=== PATIENT | female | born 1980 | race Caucasian/White ===

== ENCOUNTER 2017-07-15 16:58 | Emergency (ER) | payer OTHER ==
[2017-07-15 17:03] VITALS: BP 114/62; PULSE 68; TEMP 98.3; BMI 19.5
[2017-07-15] MEDS ORDERED: DIPHTH,PERTUSS(ACELL),TET 0.5 ML DISP.SYRIN IM ONE (17:41)
[2017-07-15] MEDS ORDERED: ACETAMINOPHEN 325 MG TABLET (FP) PO ONE ×2 (18:00→18:06)
--- NOTE | 2017-07-15 18:00 | PDOC ---
History of Present Illness - General History Source: Patient Exam Limitations: No Limitations - History of Present Illness Initial Comments: 07/15/17 18:03 The patient is a 36 year old female with no significant past medical history who presents to the ED with a right forehead injury. 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 She sustained a small wound with some surrounding swelling. The patient denies any loss of consciousness. She denies headache, blurred vision, numbness, tingling, or focal weakness. She denies nausea, vomiting, or diarrhea. She denies any other injury. <Rekha Pimentel - Last Filed: 07/15/17 18:45> <Tamy Roy - Last Filed: 07/15/17 19:01> - General Chief Complaint: Injury Stated Complaint: HEAD INJURY Time Seen by Provider: 07/15/17 17:16 Past History <Rekha Pimentel - Last Filed: 07/15/17 18:45> - Past Medical History COPD: No - Suicide/Smoking/Psychosocial Hx Smoking History: Never smoked Have you smoked in the past 12 months: Yes Number of Cigarettes Smoked Daily: 5 Information on smoking cessation initiated: Yes 'Breaking Loose' booklet given: 07/15/17 Hx Alcohol Use: No Drug/Substance Use Hx: No <Tamy Roy - Last Filed: 07/15/17 19:01> - Past Medical History Allergies/Adverse Reactions: Allergies Allergy/AdvReac Type Severity Reaction Status Date / Time No Known Allergies Allergy Verified 07/15/17 16:59 Home Medications: Ambulatory Orders NK [No Known Home Medication] 07/15/17 Review of Systems - Review of Systems Able to Perform ROS?: Yes Comments:: 07/15/17 18:05 GENERAL/CONSTITUTIONAL: No fever or chills. No weakness. HEAD, EYES, EARS, NOSE AND THROAT: No change in vision. No ear pain or discharge. No sore throat. GASTROINTESTINAL: No nausea, vomiting, diarrhea or constipation. GENITOURINARY: No dysuria, frequency, or change in urination. CARDIOVASCULAR: No chest pain or shortness of breath. RESPIRATORY: No cough, wheezing, or hemoptysis. MUSCULOSKELETAL: No joint or muscle swelling or pain. No neck or back pain. SKIN: +Right forehead abrasion and swelling. No rash NEUROLOGIC: No headache, vertigo, loss of consciousness, or change in strength/ sensation. ENDOCRINE: No increased thirst. No abnormal weight change. HEMATOLOGIC/LYMPHATIC: No anemia, easy bleeding, or history of blood clots. ALLERGIC/IMMUNOLOGIC: No hives or skin allergy. <Rekha Pimentel - Last Filed: 07/15/17 18:45> *Physical Exam - Vital Signs Last Vital Signs Temp Pulse Resp BP Pulse Ox 98.3 F 68 18 114/62 98 07/15/17 16:58 07/15/17 16:58 07/15/17 16:58 07/15/17 16:58 07/15/17 16:58 - Physical Exam Comments: 07/15/17 18:06 Constitutional: Awake, alert, oriented. No acute distress. Head: Normocephalic. Atraumatic Eyes: PERRL. EOMI. Conjunctivae are not pale. ENT: Mucous membranes are moist and intact. Posterior pharynx without exudates or erythema. Uvula midline. Neck: Supple. Full ROM. No lymphadenopathy. Cardiovascular: Regular rate. Regular rhythm. S1, S2 regular. Distal pulses are 2+ and symmetric. Pulmonary/Chest: No evidence of respiratory distress. Clear to auscultation bilaterally No wheezing, rales or rhonchi. Abdominal: Soft and non-distended. There is no tenderness. No rebound, guarding or rigidity. No organomegaly. No palpable masses. Good bowel sounds. Back: No CVA tenderness. Musculoskeletal: No edema. No cyanosis. No clubbing. Full range of motion in all extremities. Nocalf tenderness. Radial/pedal pulses are intact and 2+ bilaterally Skin: +Small superficial abrasion with surrounding soft tissue swelling. Skin is warm and dry. No petechiae. No purpura. Neurological: Alert and oriented to person, place, and time. Cranial nerves II -XII are grossly intact. Normal speech. Strength is grossly symmetric. No sensory deficits. Psychiatric: Good eye contact. Normal interaction, affect and behavior. <Rekha Pimentel - Last Filed: 07/15/17 18:45> - Vital Signs Last Vital Signs Temp Pulse Resp BP Pulse Ox 98.3 F 68 18 114/62 98 07/15/17 16:58 07/15/17 16:58 07/15/17 16:58 07/15/17 16:58 07/15/17 16:58 <Tamy Roy - Last Filed: 07/15/17 19:01> Procedures - Laceration/Wound Repair Left Upper Distal 3rd digit Wound Length: to 2.5 cm Wound Explored: clean, no foreign body present Wound's Depth, Shape: superficial Anesthesia: 1% Lidocaine Amount of Anesthetic (ccs): 3 Wound Repaired With: Sutures Suture Size/Type: 4:0 Number of Sutures: 8 <Rekha Pimentel - Last Filed: 07/15/17 18:45> - Laceration/Wound Repair Left Upper Distal 3rd digit Progress: 07/15/17 18:52 This procedure was not performed on this patient - entered on the chart incorrectly. <Tamy Roy - Last Filed: 07/15/17 19:01> ED Treatment Course - RADIOLOGY Radiology Studies Ordered: Category Date Time Status HEAD CT WITHOUT CONTRAST [CT] Stat CT Scan 07/15/17 17:41 Ordered <Tamy Roy - Last Filed: 07/15/17 19:01> Medical Decision Making - Medical Decision Making 07/15/17 17:58 a/p: 36yo female with closed head injury -no loc -pt with bruising and soft tissue swelling over temporal region with small abrasion -will update tetanus -neuro intact, however given abrasion and swelling/ecchymosis will obtain head ct -no neck pain -will give tylenol for pain -will monitor and reassess 07/15/17 18:58 the patient has returned from head ct pending radiology read of head ct I have reviewed the head ct and do not see intracranial bleeding or skull fractures pt neuro intact pt will be signed out to the oncoming ED physician pending head ct read tetanus updated in the ED <Tamy Roy - Last Filed: 07/15/17 19:01> *DC/Admit/Observation/Transfer - Attestations Scribe Attestion: 07/15/17 18:08 Documentation prepared by Rekha Pimentel, acting as medical doctor md/medical director for Tamy Roy DO. <Rekha Pimentel - Last Filed: 07/15/17 18:45> - Discharge Dispostion Admit: No - Attestations Physician Attestion: 07/15/17 19:01 I, Dr. Tamy Roy, DO, attest that this document has been prepared under my direction and personally reviewed by me in its entirety. I further attest, that it accurately reflects all work, treatment, procedures and medical decision -making performed by me. <Tamy Roy - Last Filed: 07/15/17 19:01> Diagnosis at time of Disposition: Closed head injury - Discharge Dispostion Condition at time of disposition: Stable - Referrals Referrals: Fide Edwards MD [Primary Care Provider] - - Patient Instructions Printed Discharge Instructions: DI for Closed Head Injury Additional Instructions: Please make an appointment to see your PMD in 2-3 days. Please return to the ED with any further concerns. Please make an appointment to see the neurologist if headaches persist. - Post Discharge Activity
[2017-07-15 18:06] LABS: URINE APPEARANCE Clear; URINE BILIRUBIN Negative (NEGATIVE); URINE GLUCOSE (UA) Negative (NEGATIVE); URINE KETONE Negative (NEGATIVE); URINE NITRITE Negative (NEGATIVE); URINE PROTEIN Negative (NEGATIVE); URINE UROBILINOGEN 0.2 (0.2-1.0)
[2017-07-15 18:07] LABS: HCG,QUALITATIVE URINE NEGATIVE; URINE BLOOD Trace-intact (NEGATIVE); URINE COLOR YELLOW; URINE LEUK ESTERASE TRACE (NEGATIVE)
[2017-07-15] MEDS ORDERED: ACETAMINOPHEN 500 MG TABLET (FP) ONE (18:08)
[2017-07-15 19:22] LABS: EPI CELLS FEW /HPF; URINE BACTERIA FEW /hpf (NEGATIVE); URINE RBC 0-2 /hpf (0-3)
--- NOTE | 2017-07-15 19:28 | PDOC ---
*Physical Exam - Vital Signs Last Vital Signs Temp Pulse Resp BP Pulse Ox 98.3 F 68 18 114/62 98 07/15/17 16:58 07/15/17 16:58 07/15/17 16:58 07/15/17 16:58 07/15/17 16:58 ED Treatment Course - ADDITIONAL ORDERS Additional order review: Laboratory Results 07/15/17 17:50 Urine Color Yellow Urine Appearance Clear Urine pH 7.0 Ur Specific Carnation <= 1.005 Urine Protein Negative Urine Glucose (UA) Negative Urine Ketones Negative Urine Blood Trace-intact H Urine Nitrite Negative Urine Bilirubin Negative Urine Urobilinogen 0.2 Ur Leukocyte Esterase Trace H Urine RBC 0-2 Urine WBC 5-10 Ur Epithelial Cells Few Urine Bacteria Few Urine HCG, Qual Negative - Medications Given in the ED: ED Medications Discontinued Medications Generic Name Dose Route Start Last Admin Trade Name Rosa PRN Reason Stop Dose Admin Acetaminophen 975 mg 07/15/17 18:00 07/15/17 18:48 Tylenol - PO 07/15/17 18:01 Not Given ONCE ONE Acetaminophen 1,000 mg 07/15/17 18:06 07/15/17 18:05 Tylenol - PO 07/15/17 18:07 1,000 mg ONCE ONE Administration Diphtheria/Tetanus/Acell Pertussis 0.5 ml 07/15/17 17:41 07/15/17 18:40 Boostrix - IM 07/15/17 17:42 0.5 ml .ONCE ONE Administration Progress Note - Progress Note Progress Note: Care of this patient was transferred to [place] from Dr. Roy at 1900 hrs. Patient was hit in the head with a door prior to coming in and has a head CT pending. Patient otherwise is neurologically intact there was no loss of consciousness and she is only complaining of discomfort in the area of the contusion on her right lateral forehead. 19:25 CT scan shows no acute intracranial pathology no skull fracture Assessment and plan: This is a 36-year-old female with a contusion of her forehead secondary to it being hit by a door. Patient has no skull fracture or intracranial pathology visible on CT scan. Patient is neurologically intact. Patient discharged told to take Tylenol for pain and given head injury discharge instructions. *DC/Admit/Observation/Transfer Diagnosis at time of Disposition: Closed head injury - Discharge Dispostion Disposition: HOME Condition at time of disposition: Stable - Referrals Referrals: Fide Edwards MD [Primary Care Provider] - - Patient Instructions Printed Discharge Instructions: DI for Closed Head Injury Additional Instructions: Please make an appointment to see your PMD in 2-3 days. Please return to the ED with any further concerns. Please make an appointment to see the neurologist if headaches persist. Someone should check on you once tonight during the night. You should be arousable to your Normal level of arousability for that time of the night. If you have been vomiting, have had a seizure, or you are unable to be aroused or the person checking on you is concerned that there has been a change in your mental status they should call 911 and have you brought back to the emergency department. You can take Tylenol as needed for pain. - Post Discharge Activity
== END 2017-07-15 19:40 | disposition home or self-care (01) ==
LOC: FER 16:58
PROC: 0HQ1XZZ Repair Face Skin, External Approach (ICD-10-PCS; principal; 2017-07-15)
DX: S01.81XA Laceration without foreign body of other part of head, initial encounter (principal); S09.90XA Unspecified injury of head, initial encounter; W20.8XXA Other cause of strike by thrown, projected or falling object, initial encounter; Y93.89 Activity, other specified; Y92.219 Unspecified school as the place of occurrence of the external cause; Y99.0 Civilian activity done for income or pay; F17.210 Nicotine dependence, cigarettes, uncomplicated
CPT/HCPCS: 70450-TC; 81003; 81015; 84703; 90715; 99282-25